=== PATIENT | female | born 1985 | race African-American/Black ===

== ENCOUNTER 2018-05-07 12:42 | Emergency (ER) | payer BC ==
[~2018-05-07] VITALS: Ht 157.5 cm; Wt 86.2 kg
[2018-05-07 13:13] LABS: BASOPHILS % (AUTO) 0.8 % (0.0-2.0); EOSINOPHILS % (AUTO) 1.1 % (0.0-7.0); HEMATOCRIT 38.7 % (31.2-41.9); HEMOGLOBIN 12.6 g/dL (10.9-14.3); LYMPHOCYTES # (AUTO) 1.8 K/uL (20.0-40.0); LYMPHOCYTES % (AUTO) 43.6 % (20.5-51.5); MEAN CORPUSCULAR HEMOGLOBIN 27.8 uug (24.7-32.8); MEAN CORPUSCULAR HGB CONC 32 g/dL (32.3-35.6); MEAN CORPUSCULAR VOLUME 85.8 fL (75.5-95.3); MONOCYTES # (AUTO) 0.3 K/uL (2.0-10.0); MONOCYTES % (AUTO) 6.4 % (0.0-11.0); NEUTROPHILS % (AUTO) 48.1 % (38.5-71.5); PLATELET COUNT (AUTO) 223 K/uL (179-408); RED BLOOD CELL COUNT(AUTO) 4.51 MIL/uL (3.63-4.92); WHITE BLOOD COUNT (AUTO) 4.1 K/uL (3.8-11.8)
[2018-05-07 13:21] LABS: CREATININE 0.7 mg/dL (0.6-1.3); POTASSIUM 3.5 mmol/L (3.5-5.1)
[2018-05-07 13:27] LABS: BILIRUBIN,DIRECT 0.1 mg/dL (0.0-0.2); BILIRUBIN,TOTAL 0.3 mg/dL (0.2-1.0); TOTAL PROTEIN, SERUM 8.4 g/dL (6.4-8.2)
--- NOTE | 2018-05-07 13:46 | NUR ---
Patient c/o "feeling hot'. Heart rate increased to 140-150's/min for less than 3 seconds, MD notified- no new orders given at this time.
--- NOTE | 2018-05-07 14:56 | NUR ---
Patient discharged to home in stable conditon & brisk steady gait. Written and verbal after care instructions given to patient and fiance. Patient and family verbalized understanding of instructions.
== END 2018-05-07 15:01 | disposition home or self-care (01) ==
LOC: ER 12:42
DX: I47.1 Supraventricular tachycardia (principal)
CPT/HCPCS: 36415; 70030-TC; 71045; 85025; 85730; 93005; A4663

== ENCOUNTER 2018-08-28 10:47 | Emergency (ER) | payer BC ==
[~2018-08-28] VITALS: Ht 154.9 cm; Wt 88.0 kg
--- NOTE | 2018-08-28 11:15 | NUR ---
Patient discharged to home in stable conditon. Written and verbal after care instructions given. Patient verbalizes understanding of instructions.
== END 2018-08-28 11:16 | disposition home or self-care (01) ==
LOC: ER 10:48
DX: R00.2 Palpitations (principal)
CPT/HCPCS: 93005; A4663